=== PATIENT | male | born 1950 | race Two or more races ===

== ENCOUNTER 2023-12-18 11:24 | Emergency (ER) | payer OTHER ==
[~2023-12-18] VITALS: Ht 172.7 cm; Wt 136.1 kg
[2023-12-18] MEDS ORDERED: ELIQUIS5 MG PO (11:33)
[2023-12-18] MEDS ORDERED: GRALISE600 MG (11:33)
[2023-12-18] MEDS ORDERED: ALPHAGAN P5 ML (11:34)
[2023-12-18] MEDS ORDERED: [UNRECOGNIZED DRUG - CODE] OP (11:34)
[2023-12-18] MEDS ORDERED: TREXALL7.5 MG (11:35)
[2023-12-18] MEDS ORDERED: AVAPRO300 MG PO (11:35)
[2023-12-18] MEDS ORDERED: OMEPRAZOLE40 MG PO (11:36)
[2023-12-18] MEDS ORDERED: [UNRECOGNIZED DRUG - OTHER] (11:36)
[2023-12-18] MEDS ORDERED: FARXIGA10 MG PO (11:37)
[2023-12-18] MEDS ORDERED: MOUNJARO5 MG/0.5 M SQ (11:37)
[2023-12-18] MEDS ORDERED: DHEA25 MG (11:37)
[2023-12-18] MEDS ORDERED: NAC600 MG PO (11:37)
[2023-12-18 12:52] LABS: HEMATOCRIT 36.9 % (39.0-48.0); HEMOGLOBIN 12.5 g/dL (13-16.00); MEAN CELL VOLUME 87.2 fL (80.0-100.00); MEAN CORPUSCULAR HEMOGLOBIN 29.6 pg (27.00-32.0); MEAN CORPUSCULAR HGB CONC 33.9 g/dl (32.0-36.0); PLATELET COUNT 313 K/uL (150-450); RED BLOOD COUNT 4.23 M/uL (4.00-6.00)
[2023-12-18 13:37] LABS: URINE APPEARANCE Turbid; URINE BILIRRUBIN Small (NEGATIVE); URINE BLOOD Small; URINE COLOR Dark Yellow; URINE EPITHELIAL CELLS 10.2 uL (0.0-38.8); URINE LEUKOCYTE Moderate; URINE NITRATE Negative; URINE WBC 1830.4 uL (0.0-23.2)
[2023-12-18 13:39] LABS: URINE BACTERIA > 9821.5 uL (0.0-1933); URINE GLUCOSE 250 MG/DL (NEGATIVE); URINE PROTEIN 300 (NEGATIVE)
[2023-12-18 14:22] LABS: CALCIUM 8.6 mg/dL (8.5-10.1); CREATININE SERUM 2.75 mg/dL (0.70-1.30); GFR 22.86; POTASSIUM 5.49 mEq/L (3.5-5.1)
[2023-12-18] MEDS ORDERED: CIPROFLOXACIN IN 5 % DEXTROSE 400 MG/200 ML PIGGYBAG IV STA (15:25)
== END 2023-12-18 17:00 | disposition home or self-care (01) ==
LOC: ER 11:24 → EDBD 12:00 → ER 17:00
PROVIDERS: General Practice
DX: N39.0 Urinary tract infection, site not specified (principal); E11.65 Type 2 diabetes mellitus with hyperglycemia; Z79.4 Long term (current) use of insulin; I10 Essential (primary) hypertension; E78.00 Pure hypercholesterolemia, unspecified
CPT/HCPCS: 96365; 99282; J0744

== ENCOUNTER 2024-04-07 14:59 | Emergency (ER) | payer OTHER ==
[~2024-04-07] VITALS: Ht 172.7 cm; Wt 136.1 kg
[~2024-04-07 14:59] MED LIST: ALPHAGAN P5 ML; AVAPRO300 MG PO; DHEA25 MG; ELIQUIS5 MG PO; FARXIGA10 MG PO; GRALISE600 MG; MOUNJARO5 MG/0.5 M SQ; NAC600 MG PO; OMEPRAZOLE40 MG PO; TREXALL7.5 MG; [UNRECOGNIZED DRUG - CODE] OP; [UNRECOGNIZED DRUG - OTHER]
[2024-04-07] MEDS ORDERED: GRALISE600 MG PO (15:33)
[2024-04-07] MEDS ORDERED: HORIZANT300 MG PO (15:33)
[2024-04-07] MEDS ORDERED: SYNTHROID75 MCG PO (15:34)
[2024-04-07] MEDS ORDERED: ALPHAGAN P5 M2 OP (15:34)
[2024-04-07] MEDS ORDERED: SIMVASTATIN20 MG PO (15:35)
[2024-04-07] MEDS ORDERED: METHOTREXATE2.5 MG PO (15:35)
[2024-04-07] MEDS ORDERED: LANTUS SOL100 UNIT/1 SUBCUTANEO (15:36)
[2024-04-07] MEDS ORDERED: MOUNJARO7.5 MG/0.5 SUBCUTANEO (15:37)
[2024-04-07] MEDS ORDERED: HUMALOG100 UNIT/2 SUBCUTANEO (15:37)
[2024-04-07] MEDS ORDERED: 0.9 % SODIUM CHLORIDE 1,000 ML IV SCH (16:30)
[2024-04-07 18:18] LABS: CALCIUM 8.6 mg/dL (8.5-10.1); CREATININE SERUM 1.93 mg/dL (0.70-1.30); GFR 34.39; POTASSIUM 5.56 mEq/L (3.5-5.1)
== END 2024-04-07 18:58 | disposition home or self-care (01) ==
LOC: ER 14:59
PROVIDERS: Emergency Medicine
DX: L97.818 Non-pressure chronic ulcer of other part of right lower leg with other specified severity (principal); E11.9 Type 2 diabetes mellitus without complications; Z79.4 Long term (current) use of insulin; Z85.89 Personal history of malignant neoplasm of other organs and systems; E78.00 Pure hypercholesterolemia, unspecified; I10 Essential (primary) hypertension; L97.328 Non-pressure chronic ulcer of left ankle with other specified severity; D69.3 Immune thrombocytopenic purpura; Z20.822 Contact with and (suspected) exposure to COVID-19
CPT/HCPCS: 36415; 96365; 96366; 99282; J7030